=== PATIENT | female | born 1965 | race Caucasian/White ===

== ENCOUNTER 2016-11-15 17:55 | Inpatient (IN) | payer OTHER ==
[~2016-11-15] VITALS: Ht 160 cm; Wt 52.9 kg
[2016-11-15 18:57] LABS: BUN/CREATININE RATIO 35 (0-10); RED BLOOD COUNT 4.77 M/UL (4.00-5.10)
[2016-11-16 03:40] LABS: RED BLOOD COUNT 4.17 M/UL (4.00-5.10); WHITE BLOOD COUNT 18.8 K/UL (4.5-11.0)
[2016-11-16 07:18] LABS: BUN/CREATININE RATIO 30 (0-10)
[2016-11-16 07:44] LABS: HEMOGLOBIN 12.4 gm/dl (12.3-15.3); RED BLOOD COUNT 4.04 M/UL (4.00-5.10); WHITE BLOOD COUNT 16.1 K/UL (4.5-11.0)
[2016-11-16 08:07] LABS: BUN/CREATININE RATIO 34 (0-10)
[2016-11-16 13:45] LABS: BUN/CREATININE RATIO 27 (0-10)
[2016-11-16 20:46] LABS: BUN/CREATININE RATIO 27 (0-10)
[2016-11-17 05:09] LABS: BUN/CREATININE RATIO 29 (0-10)
[2016-11-17 06:00] LABS: HEMOGLOBIN 8.5 gm/dl (12.3-15.3); RED BLOOD COUNT 2.72 M/UL (4.00-5.10)
[2016-11-18 05:04] LABS: HEMOGLOBIN 8.3 gm/dl (12.3-15.3); RED BLOOD COUNT 2.67 M/UL (4.00-5.10)
[2016-11-18 05:32] LABS: BUN/CREATININE RATIO 44 (0-10)
[2016-11-18 17:05] LABS: BUN/CREATININE RATIO 57 (0-10)
[2016-11-19 03:47] LABS: HEMOGLOBIN 9.5 gm/dl (12.3-15.3)
[2016-11-19 03:48] LABS: RED BLOOD COUNT 3.11 M/UL (4.00-5.10)
[2016-11-19 04:01] LABS: BUN/CREATININE RATIO 60 (0-10)
[2016-11-19 16:28] LABS: BUN/CREATININE RATIO 65 (0-10)
[2016-11-20 05:24] LABS: BUN/CREATININE RATIO 60 (0-10)
[2016-11-20 05:36] LABS: HEMOGLOBIN 9.4 gm/dl (12.3-15.3); RED BLOOD COUNT 3.07 M/UL (4.00-5.10); WHITE BLOOD COUNT 16.6 K/UL (4.5-11.0)
[2016-11-21 03:52] LABS: HEMOGLOBIN 9.6 gm/dl (12.3-15.3); RED BLOOD COUNT 3.12 M/UL (4.00-5.10); WHITE BLOOD COUNT 14.3 K/UL (4.5-11.0)
[2016-11-21 04:34] LABS: BUN/CREATININE RATIO 63 (0-10)
[2016-11-22 03:41] LABS: HEMOGLOBIN 10.2 gm/dl (12.3-15.3); RED BLOOD COUNT 3.28 M/UL (4.00-5.10); WHITE BLOOD COUNT 14.7 K/UL (4.5-11.0)
[2016-11-22 04:01] LABS: BUN/CREATININE RATIO 70 (0-10)
[2016-11-23 03:48] LABS: HEMOGLOBIN 11.2 gm/dl (12.3-15.3); WHITE BLOOD COUNT 17.9 K/UL (4.5-11.0)
[2016-11-23 03:50] LABS: RED BLOOD COUNT 3.67 M/UL (4.00-5.10)
[2016-11-23 04:06] LABS: BUN/CREATININE RATIO 40 (0-10)
[2016-11-24 04:38] LABS: HEMOGLOBIN 9.8 gm/dl (12.3-15.3); WHITE BLOOD COUNT 15.9 K/UL (4.5-11.0)
[2016-11-24 04:40] LABS: RED BLOOD COUNT 3.15 M/UL (4.00-5.10)
[2016-11-24 04:55] LABS: BUN/CREATININE RATIO 50 (0-10)
[2016-11-25 03:38] LABS: HEMOGLOBIN 9.1 gm/dl (12.3-15.3); RED BLOOD COUNT 2.96 M/UL (4.00-5.10); WHITE BLOOD COUNT 13.9 K/UL (4.5-11.0)
[2016-11-25 04:02] LABS: BUN/CREATININE RATIO 30 (0-10)
[2016-11-26 04:45] LABS: HEMOGLOBIN 8.6 gm/dl (12.3-15.3); RED BLOOD COUNT 2.78 M/UL (4.00-5.10); WHITE BLOOD COUNT 11.8 K/UL (4.5-11.0)
[2016-11-26 05:11] LABS: BUN/CREATININE RATIO 23 (0-10)
[2016-11-27 04:25] LABS: HEMOGLOBIN 7.9 gm/dl (12.3-15.3); RED BLOOD COUNT 2.59 M/UL (4.00-5.10); WHITE BLOOD COUNT 9.7 K/UL (4.5-11.0)
[2016-11-27 04:53] LABS: BUN/CREATININE RATIO 30 (0-10)
[2016-11-28 04:14] LABS: HEMOGLOBIN 7.1 gm/dl (12.3-15.3)
[2016-11-28 04:17] LABS: RED BLOOD COUNT 2.26 M/UL (4.00-5.10); WHITE BLOOD COUNT 6.6 K/UL (4.5-11.0)
[2016-11-28 11:19] LABS: HEMOGLOBIN 7.6 gm/dl (12.3-15.3)
[2016-11-28] MEDS ORDERED: ZYVOX 600 MG T600 MG PO (15:47)
[2016-11-28] MEDS ORDERED: ENSURE ORIGINA237 ML PO (15:48)
[2016-11-28] MEDS ORDERED: PROTONIX 40 MG40 M1 PO (15:49)
[2016-11-28] MEDS ORDERED: IPRAT-ALBUT 0.5-3 ML INH (15:52)
[2016-11-28] MEDS ORDERED: TYLENOL 650 MG650 MG PO (15:54)
[2016-11-28] MEDS ORDERED: COLACE 100MG C100 MG PO (15:55)
[2016-11-28] MEDS ORDERED: LOPRESSOR 25 MG25 MG PO (15:57)
[2016-11-28] MEDS ORDERED: FERROUS SULFAT325 MG PO (15:58)
== END 2016-11-28 16:30 | disposition home or self-care (01) | DRG 870 ==
LOC: ER1 17:55 → ZEROF 20:56 → CCU 20:56 → PROG CARE 11-26 17:46
PROVIDERS: Emergency Medicine; Internal Medicine; Internal Medicine Critical Care Medicine; Internal Medicine Infectious Disease; Internal Medicine Pulmonary Disease; ADMIT Internal Medicine
PROC: 0BH17EZ Insertion of Endotracheal Airway into Trachea, Via Natural or Artificial Opening (ICD-10-PCS; principal; 2016-11-15)
PROC: 5A1955Z Respiratory Ventilation, Greater than 96 Consecutive Hours (ICD-10-PCS; principal; 2016-11-15)
PROC: 3E0G76Z Introduction of Nutritional Substance into Upper GI, Via Natural or Artificial Opening (ICD-10-PCS; 2016-11-16)
PROC: 05HM33Z Insertion of Infusion Device into Right Internal Jugular Vein, Percutaneous Approach (ICD-10-PCS; 2016-11-16)
PROC: B543ZZA Ultrasonography of Right Jugular Veins, Guidance (ICD-10-PCS; 2016-11-16)
PROC: BB281ZZ Computerized Tomography (CT Scan) of Left Tracheobronchial Tree using Low Osmolar Contrast (ICD-10-PCS; 2016-11-23)
PROC: 0W9B30Z Drainage of Left Pleural Cavity with Drainage Device, Percutaneous Approach (ICD-10-PCS; 2016-11-23)
DX: A41.02 Sepsis due to Methicillin resistant Staphylococcus aureus (principal); J96.21 Acute and chronic respiratory failure with hypoxia; J15.212 Pneumonia due to Methicillin resistant Staphylococcus aureus; E43 Unspecified severe protein-calorie malnutrition; R65.21 Severe sepsis with septic shock; J96.22 Acute and chronic respiratory failure with hypercapnia; J44.0 Chronic obstructive pulmonary disease with (acute) lower respiratory infection; E87.1 Hypo-osmolality and hyponatremia; J93.83 Other pneumothorax; N17.9 Acute kidney failure, unspecified; E87.2 Acidosis; J44.1 Chronic obstructive pulmonary disease with (acute) exacerbation; R64 Cachexia; I47.2 Ventricular tachycardia; I48.0 Paroxysmal atrial fibrillation; E87.6 Hypokalemia; B95.61 Methicillin susceptible Staphylococcus aureus infection as the cause of diseases classified elsewhere; F17.210 Nicotine dependence, cigarettes, uncomplicated; E86.0 Dehydration; R34 Anuria and oliguria; E07.81 Sick-euthyroid syndrome; D64.9 Anemia, unspecified; E87.70 Fluid overload, unspecified; R53.1 Weakness
CPT/HCPCS: ECHO; 31500; 36415; 36600; 71010; 71020; 71250; 80048; 80053; 80202; 80307; 81001; 82248; 82272; 82550; 82553; 82570; 82607; 82728; 82746; 82803; 82962; 83540; 83550; 83605; 83735; 83874; 83880; 83930; 83935; 84100; 84132; 84133; 84300; 84436; 84439; 84443; 84480; 84484; 85014; 85018; 85025; 85027; 85379; 85610; 85730; 87040; 87070; 87077; 87081; 87086; 87186; 87205; 87278; 87899; 93005; 93306; 94002; 94003; 94640; 94660; 94664; 96361; 96374; 96376; 97530; 99285; A4628; C1751; C9113; J0330; J0692; J1650; J1956; J2020; J2060; J2250; J2270; J2405; J2920; J2930; J3370; J7030; J7040; J7050; J7070; P9047; Q9963

== ENCOUNTER 2016-12-20 19:52 | Inpatient (IN) | payer OTHER ==
[~2016-12-20] VITALS: Ht 157.5 cm; Wt 64.6 kg
[~2016-12-20 19:52] MED LIST: COLACE 100MG C100 MG PO; ENSURE ORIGINA237 ML PO; FERROUS SULFAT325 MG PO; IPRAT-ALBUT 0.5-3 ML INH; LOPRESSOR 25 MG25 MG PO; PROTONIX 40 MG40 M1 PO; TYLENOL 650 MG650 MG PO; ZYVOX 600 MG T600 MG PO
[2016-12-20 20:20] LABS: HEMOGLOBIN 7.2 gm/dl (12.3-15.3); RED BLOOD COUNT 2.47 M/UL (4.00-5.10); WHITE BLOOD COUNT 16.7 K/UL (4.5-11.0)
[2016-12-21 08:43] LABS: HEMOGLOBIN 8.1 gm/dl (12.3-15.3); RED BLOOD COUNT 2.91 M/UL (4.00-5.10); WHITE BLOOD COUNT 15.9 K/UL (4.5-11.0)
[2016-12-22 05:13] LABS: RED BLOOD COUNT 2.39 M/UL (4.00-5.10); WHITE BLOOD COUNT 11.2 K/UL (4.5-11.0)
[2016-12-22 05:14] LABS: HEMOGLOBIN 6.6 gm/dl (12.3-15.3)
[2016-12-22 12:28] LABS: HEMOGLOBIN 9.1 gm/dl (12.3-15.3)
[2016-12-22 17:56] LABS: HEMOGLOBIN 10.2 gm/dl (12.3-15.3)
[2016-12-23 09:16] LABS: HEMOGLOBIN 9.2 gm/dl (12.3-15.3); WHITE BLOOD COUNT 11.7 K/UL (4.5-11.0)
[2016-12-23 09:19] LABS: RED BLOOD COUNT 3.35 M/UL (4.00-5.10)
[2016-12-24 03:44] LABS: HEMOGLOBIN 9.1 gm/dl (12.3-15.3); RED BLOOD COUNT 3.32 M/UL (4.00-5.10); WHITE BLOOD COUNT 9.9 K/UL (4.5-11.0)
[2016-12-25 04:08] LABS: HEMOGLOBIN 8.8 gm/dl (12.3-15.3); RED BLOOD COUNT 3.24 M/UL (4.00-5.10); WHITE BLOOD COUNT 8.5 K/UL (4.5-11.0)
[2016-12-26 05:15] LABS: HEMOGLOBIN 9.6 gm/dl (12.3-15.3); RED BLOOD COUNT 3.54 M/UL (4.00-5.10); WHITE BLOOD COUNT 9.2 K/UL (4.5-11.0)
[2016-12-29 03:39] LABS: HEMOGLOBIN 8.5 gm/dl (12.3-15.3); WHITE BLOOD COUNT 7.6 K/UL (4.5-11.0)
[2016-12-29 03:42] LABS: RED BLOOD COUNT 3.15 M/UL (4.00-5.10)
[2016-12-30 04:33] LABS: HEMOGLOBIN 8.3 gm/dl (12.3-15.3); RED BLOOD COUNT 3.1 M/UL (4.00-5.10); WHITE BLOOD COUNT 9.2 K/UL (4.5-11.0)
[2016-12-31 04:45] LABS: WHITE BLOOD COUNT 8.3 K/UL (4.5-11.0)
[2017-01-01 04:32] LABS: HEMOGLOBIN 7.4 gm/dl (12.3-15.3); RED BLOOD COUNT 2.8 M/UL (4.00-5.10); WHITE BLOOD COUNT 8.6 K/UL (4.5-11.0)
[2017-01-02 04:17] LABS: HEMOGLOBIN 8.9 gm/dl (12.3-15.3); RED BLOOD COUNT 3.34 M/UL (4.00-5.10); WHITE BLOOD COUNT 6.4 K/UL (4.5-11.0)
[2017-01-03 05:09] LABS: HEMOGLOBIN 7.9 gm/dl (12.3-15.3)
[2017-01-03 05:11] LABS: RED BLOOD COUNT 2.98 M/UL (4.00-5.10); WHITE BLOOD COUNT 10.1 K/UL (4.5-11.0)
[2017-01-05 04:43] LABS: HEMOGLOBIN 7.1 gm/dl (12.3-15.3); RED BLOOD COUNT 2.7 M/UL (4.00-5.10); WHITE BLOOD COUNT 8.2 K/UL (4.5-11.0)
[2017-01-06 04:34] LABS: RED BLOOD COUNT 3.04 M/UL (4.00-5.10); WHITE BLOOD COUNT 10.3 K/UL (4.5-11.0)
[2017-01-07 04:53] LABS: HEMOGLOBIN 8.9 gm/dl (12.3-15.3); RED BLOOD COUNT 3.33 M/UL (4.00-5.10)
[2017-01-07] MEDS ORDERED: ASPIRIN81 MG PO (12:34)
[2017-01-07] MEDS ORDERED: LIPITOR TAB 2020 MG PO (12:35)
[2017-01-07] MEDS ORDERED: PLAVIX 75 MG TA75 MG PO (12:35)
[2017-01-07] MEDS ORDERED: CATAPRES 0.1MG0.1 MG PO (12:35)
[2017-01-07] MEDS ORDERED: EPOETIN ALFA INJ (12:36)
[2017-01-07] MEDS ORDERED: IMDUR ER TAB 3030 MG PO (12:37)
[2017-01-07] MEDS ORDERED: LOPRESSOR100 MG PO (12:38)
[2017-01-07] MEDS ORDERED: PROTONIX40 MG PO (12:39)
[2017-01-07] MEDS ORDERED: PREDNISONE20 MG PO (12:39)
[2017-01-07] MEDS ORDERED: DULERA 200 MCG8.8 GM INH (12:40)
[2017-01-07] MEDS ORDERED: SPIRIVA HANDIH18 MCG INH (12:41)
[2017-01-07] MEDS ORDERED: BACTRIM DS TAB1 EACH PO (12:42)
[2017-01-07] MEDS ORDERED: LORCET 5-325 M1 EACH PO (12:42)
[2017-01-07] MEDS ORDERED: BUMEX 1MG TABLET1 MG PO (12:43)
== END 2017-01-07 13:27 | disposition home or self-care (01) | DRG 280 ==
LOC: ER1 19:52 → CCU 12-21 01:00 → ZEROF 12-21 01:00 → MED SURG 4 12-21 01:00 → PROG CARE 12-21 01:00 → CCU 12-21 05:27 → PROG CARE 12-24 19:58 → MED SURG 4 12-29 10:32
PROVIDERS: Emergency Medicine; Internal Medicine; Internal Medicine Infectious Disease; Internal Medicine Nephrology; Internal Medicine Pulmonary Disease; ADMIT Internal Medicine
PROC: 30233N1 Transfusion of Nonautologous Red Blood Cells into Peripheral Vein, Percutaneous Approach (ICD-10-PCS; 2016-12-21)
PROC: 0TB04ZX Excision of Right Kidney, Percutaneous Endoscopic Approach, Diagnostic (ICD-10-PCS; principal; 2016-12-30)
DX: I21.4 Non-ST elevation (NSTEMI) myocardial infarction (principal); I50.33 Acute on chronic diastolic (congestive) heart failure; N17.9 Acute kidney failure, unspecified; D62 Acute posthemorrhagic anemia; J90 Pleural effusion, not elsewhere classified; E87.1 Hypo-osmolality and hyponatremia; Z87.891 Personal history of nicotine dependence; J44.9 Chronic obstructive pulmonary disease, unspecified; Z99.81 Dependence on supplemental oxygen; N05.9 Unspecified nephritic syndrome with unspecified morphologic changes; I11.0 Hypertensive heart disease with heart failure; I48.0 Paroxysmal atrial fibrillation; D50.9 Iron deficiency anemia, unspecified; I27.2 Other secondary pulmonary hypertension; N30.91 Cystitis, unspecified with hematuria; B96.1 Klebsiella pneumoniae [K. pneumoniae] as the cause of diseases classified elsewhere; D47.3 Essential (hemorrhagic) thrombocythemia; E87.5 Hyperkalemia
CPT/HCPCS: ECHO; 36415; 36430; 36600; 71010; 71020; 71250; 77012; 78452; 80048; 80053; 80061; 80074; 80202; 80307; 81001; 82043; 82270; 82272; 82533; 82550; 82553; 82570; 82728; 82803; 82962; 83010; 83036; 83516; 83540; 83550; 83615; 83690; 83735; 83874; 83880; 83883; 84156; 84300; 84443; 84484; 85014; 85018; 85025; 85027; 85379; 85610; 85730; 86039; 86060; 86160; 86334; 86850; 86900; 86901; 86920; 87077; 87081; 87086; 87186; 87880; 88305; 88313; 88346; 88348; 89050; 93005; 93017; 93306; 93970; 94640; 96361; 96374; 96375; 97116; 99285; A9502; J0696; J0885; J1644; J1756; J2270; J2405; J2785; J2930; J3370; J7030; J7050; J7070; P9016

== ENCOUNTER 2017-01-13 15:17 | Inpatient (IN) | payer OTHER ==
[~2017-01-13] VITALS: Ht 157.5 cm; Wt 49.4 kg
[~2017-01-13 15:17] MED LIST changes: +ASPIRIN81 MG PO; +BACTRIM DS TAB1 EACH PO; +BUMEX 1MG TABLET1 MG PO; +CATAPRES 0.1MG0.1 MG PO; +DULERA 200 MCG8.8 GM INH; +EPOETIN ALFA INJ; +IMDUR ER TAB 3030 MG PO; +LIPITOR TAB 2020 MG PO; +LOPRESSOR100 MG PO; +LORCET 5-325 M1 EACH PO; +PLAVIX 75 MG TA75 MG PO; +PREDNISONE20 MG PO; +PROTONIX40 MG PO; +SPIRIVA HANDIH18 MCG INH
[2017-01-13 16:26] LABS: HEMOGLOBIN 8.6 gm/dl (12.3-15.3); RED BLOOD COUNT 3.13 M/UL (4.00-5.10); WHITE BLOOD COUNT 13.1 K/UL (4.5-11.0)
[2017-01-14 05:43] LABS: HEMOGLOBIN 8.3 gm/dl (12.3-15.3); RED BLOOD COUNT 2.98 M/UL (4.00-5.10); WHITE BLOOD COUNT 10.9 K/UL (4.5-11.0)
[2017-01-15 01:22] LABS: HEMOGLOBIN 7.8 gm/dl (12.3-15.3); RED BLOOD COUNT 2.84 M/UL (4.00-5.10); WHITE BLOOD COUNT 10.6 K/UL (4.5-11.0)
--- NOTE | 2017-01-16 03:20 | NUR ---
PATIENT COMPLAINS OF CHEST PAIN. PATIENT IS DIAPHORETIC, SHIVERING, STATES SHE IS "FREEZING". CHEST PAIN RATES 7/10. DULL PRESSURE. HOSPITALIST DR FOY MADE AWARE. STAT EKG OBTAINED. NITRO SL SERIES ADMINISTERED. AFTER THIRD NITRO SL PATIENT RATES PAIN 4/10. NITRO PASTE NOTED ON CHEST WALL. MD TELEPHONE ORDERES MORPHINE FOR PAIN DOSE DEPENDENT UPON SEVERITY OF PAIN RATING. RN ADMINISTERS 2MG MORPINE IV WITH NO RELIEF OF PAIN. SINUS GEOVANNY 58 NOTED ON MONITOR , NO ST ELEVATION OR DEPRESSION NOTED ON EKG. CARDIAC ENZYMES CONTINUE TO TREND DOWNWARD. COVERING HOSPITALIST AWARE OF PATIENT CONDITION. WILL CONTINUE TO MONITOR PATIENT.
[2017-01-16 03:32] LABS: HEMOGLOBIN 9.5 gm/dl (12.3-15.3); WHITE BLOOD COUNT 9.4 K/UL (4.5-11.0)
[2017-01-16 03:34] LABS: RED BLOOD COUNT 3.34 M/UL (4.00-5.10)
[2017-01-16 17:40] LABS: HEMOGLOBIN 9.7 gm/dl (12.3-15.3); RED BLOOD COUNT 3.46 M/UL (4.00-5.10); WHITE BLOOD COUNT 11.5 K/UL (4.5-11.0)
[2017-01-17 04:23] LABS: HEMOGLOBIN 8.6 gm/dl (12.3-15.3)
[2017-01-17 04:28] LABS: RED BLOOD COUNT 3.09 M/UL (4.00-5.10); WHITE BLOOD COUNT 7.8 K/UL (4.5-11.0)
[2017-01-18 04:41] LABS: HEMOGLOBIN 9.2 gm/dl (12.3-15.3); RED BLOOD COUNT 3.26 M/UL (4.00-5.10); WHITE BLOOD COUNT 9.4 K/UL (4.5-11.0)
[2017-01-18] MEDS ORDERED: LABETALOL HCL300 MG PO (12:46)
[2017-01-18] MEDS ORDERED: LASIX 40 MG TAB40 MG PO (12:48)
== END 2017-01-18 14:30 | disposition home or self-care (01) | DRG 247 ==
LOC: ER1 15:17 → ZEROF 17:54 → PROG CARE 21:50
PROVIDERS: Emergency Medicine; Internal Medicine; Internal Medicine Nephrology; ADMIT Internal Medicine
PROC: 30233N1 Transfusion of Nonautologous Red Blood Cells into Peripheral Vein, Percutaneous Approach (ICD-10-PCS; 2017-01-15)
PROC: 027034Z Dilation of Coronary Artery, One Artery with Drug-eluting Intraluminal Device, Percutaneous Approach (ICD-10-PCS; principal; 2017-01-16)
PROC: 4A023N7 Measurement of Cardiac Sampling and Pressure, Left Heart, Percutaneous Approach (ICD-10-PCS; 2017-01-16)
PROC: B2111ZZ Fluoroscopy of Multiple Coronary Arteries using Low Osmolar Contrast (ICD-10-PCS; 2017-01-16)
DX: I21.4 Non-ST elevation (NSTEMI) myocardial infarction (principal); N17.9 Acute kidney failure, unspecified; J96.11 Chronic respiratory failure with hypoxia; I13.0 Hypertensive heart and chronic kidney disease with heart failure and stage 1 through stage 4 chronic kidney disease, or unspecified chronic kidney disease; I50.32 Chronic diastolic (congestive) heart failure; D62 Acute posthemorrhagic anemia; I47.2 Ventricular tachycardia; Z68.1 Body mass index [BMI] 19.9 or less, adult; I25.110 Atherosclerotic heart disease of native coronary artery with unstable angina pectoris; N05.7 Unspecified nephritic syndrome with diffuse crescentic glomerulonephritis; N18.3 Chronic kidney disease, stage 3 (moderate); J44.9 Chronic obstructive pulmonary disease, unspecified; I48.0 Paroxysmal atrial fibrillation; D50.9 Iron deficiency anemia, unspecified; R63.4 Abnormal weight loss; R04.0 Epistaxis; D72.829 Elevated white blood cell count, unspecified; Z87.891 Personal history of nicotine dependence; Z87.01 Personal history of pneumonia (recurrent); Z72.3 Lack of physical exercise; Z79.02 Long term (current) use of antithrombotics/antiplatelets; Z79.82 Long term (current) use of aspirin; Z79.52 Long term (current) use of systemic steroids; Z79.51 Long term (current) use of inhaled steroids; Z99.81 Dependence on supplemental oxygen; Z79.891 Long term (current) use of opiate analgesic; Z79.899 Other long term (current) drug therapy; Z90.710 Acquired absence of both cervix and uterus; Z90.49 Acquired absence of other specified parts of digestive tract; Z98.890 Other specified postprocedural states; Z82.49 Family history of ischemic heart disease and other diseases of the circulatory system
CPT/HCPCS: ECHO; 36415; 36430; 71010; 80048; 80053; 82550; 82553; 82570; 82728; 83540; 83550; 83735; 83874; 83880; 84156; 84484; 85025; 85027; 85347; 85379; 85610; 85730; 86850; 86900; 86901; 86920; 93005; 93306; 94640; 94664; 96374; 96375; 99291; C1725; C1769; C1874; C1887; C1894; C9600; J0360; J1644; J1756; J2250; J2270; J2550; J3010; J7050; P9016; Q9965

== ENCOUNTER → 2017-01-25 | Outpatient (CLI) | payer OTHER ==
[~2017-01-25] MED LIST changes: +LABETALOL HCL300 MG PO; +LASIX 40 MG TAB40 MG PO
[2017-01-25 15:47] LABS: HEMOGLOBIN 9.8 gm/dl (12.3-15.3); RED BLOOD COUNT 3.39 M/UL (4.00-5.10); WHITE BLOOD COUNT 7.7 K/UL (4.5-11.0)
== END ==
LOC: LAB 15:07
PROVIDERS: Internal Medicine Nephrology
DX: I10 Essential (primary) hypertension (principal); N17.9 Acute kidney failure, unspecified; D64.9 Anemia, unspecified
CPT/HCPCS: 36415; 80048; 85025

== ENCOUNTER → 2017-01-28 | Outpatient (CLI) | payer OTHER | LOC: LAB 14:29 | PROVIDERS: Internal Medicine Nephrology | DX: N18.9 Chronic kidney disease, unspecified (principal); R80.9 Proteinuria, unspecified | CPT/HCPCS: 36415; 80053; 82570; 84156 ==

== ENCOUNTER 2017-02-01 16:37 | Emergency (ER) | payer OTHER | END 2017-02-01 18:01 | disposition left against medical advice (07) | LOC: ER1 16:37 | DX: Z53.21 Procedure and treatment not carried out due to patient leaving prior to being seen by health care provider (principal) ==

== ENCOUNTER → 2017-02-03 | Outpatient (CLI) | payer OTHER | LOC: LAB 11:38 | PROVIDERS: Internal Medicine Nephrology | DX: J44.9 Chronic obstructive pulmonary disease, unspecified (principal); N18.9 Chronic kidney disease, unspecified; E87.6 Hypokalemia; N05.7 Unspecified nephritic syndrome with diffuse crescentic glomerulonephritis; R91.8 Other nonspecific abnormal finding of lung field; J90 Pleural effusion, not elsewhere classified | CPT/HCPCS: 36415; 71020; 80048; 82728; 83540; 83550; 83735 ==

== ENCOUNTER → 2017-02-17 | Outpatient (CLI) | payer OTHER ==
[2017-02-17 15:28] LABS: HEMOGLOBIN 11.6 gm/dl (12.3-15.3); RED BLOOD COUNT 3.8 M/UL (4.00-5.10); WHITE BLOOD COUNT 14.3 K/UL (4.5-11.0)
== END ==
LOC: LAB 14:51
PROVIDERS: Internal Medicine Nephrology
DX: N18.9 Chronic kidney disease, unspecified (principal); E87.6 Hypokalemia; N05.7 Unspecified nephritic syndrome with diffuse crescentic glomerulonephritis
CPT/HCPCS: 36415; 80053; 81001; 82043; 82570; 84156; 85027

== ENCOUNTER 2020-11-28 22:41 | Inpatient (IN) | payer OTHER ==
[~2020-11-28] VITALS: Ht 160 cm; Wt 49.4 kg
[~2020-11-28 22:41] MED LIST changes: +ALDACTONE25 MG PO; +LEVAQUIN750 MG PO; +LORTAB 5-325 M1 EACH PO; +MEDROL4 MG PO; +NITROGLYCERIN0.4 MG SL
[2020-11-28 23:52] LABS: HEMOGLOBIN 15.1 gm/dl (12.3-15.3); RED BLOOD COUNT 4.63 M/UL (4.00-5.10); WHITE BLOOD COUNT 22.3 K/UL (4.5-11.0)
[2020-11-29 00:09] LABS: BUN/CREATININE RATIO 18 (0-10)
[2020-11-30 03:53] LABS: HEMOGLOBIN 11.1 gm/dl (12.3-15.3); RED BLOOD COUNT 3.5 M/UL (4.00-5.10); WHITE BLOOD COUNT 10.5 K/UL (4.5-11.0)
[2020-12-01 03:43] LABS: HEMOGLOBIN 11.1 gm/dl (12.3-15.3); RED BLOOD COUNT 3.56 M/UL (4.00-5.10)
[2020-12-01 03:53] LABS: WHITE BLOOD COUNT 5.9 K/UL (4.5-11.0)
[2020-12-01] MEDS ORDERED: ATORVASTATIN CA20 MG PO (08:37)
[2020-12-01] MEDS ORDERED: LISINOPRIL10 MG PO (08:37)
[2020-12-01] MEDS ORDERED: CARVEDILOL3.125 MG PO (08:37)
[2020-12-01] MEDS ORDERED: ZITHROMAX250 MG PO (08:37)
[2020-12-01] MEDS ORDERED: OMNICEF 300 MG300 MG PO (08:37)
[2020-12-01] MEDS ORDERED: MEDROL TAB 4 MG4 MG PO (09:33)
[2020-12-01] MEDS ORDERED: IPRAT-ALBUT 0.5-3 ML INH (09:33)
[2020-12-01] MEDS ORDERED: NEBULIZER UNIT INH (09:33)
[2020-12-01] MEDS ORDERED: COMBIVENT RESPIM4 GM INH (09:34)
[2020-12-01] MEDS ORDERED: COREG 12.5MG12.5 MG PO (10:43)
== END 2020-12-01 14:40 | disposition home or self-care (01) | DRG 193 ==
LOC: ER1 22:41 → CDU 11-29 00:30 → M/S 11-29 00:30
PROVIDERS: Family Medicine; Nurse Practitioner; ADMIT Internal Medicine
PROC: B24BZZ4 Ultrasonography of Heart with Aorta, Transesophageal (ICD-10-PCS; principal; 2020-11-29)
DX: J18.9 Pneumonia, unspecified organism (principal); J96.01 Acute respiratory failure with hypoxia; M62.82 Rhabdomyolysis; I42.9 Cardiomyopathy, unspecified; E87.2 Acidosis; I50.22 Chronic systolic (congestive) heart failure; N17.9 Acute kidney failure, unspecified; Z20.822 Contact with and (suspected) exposure to COVID-19; E78.5 Hyperlipidemia, unspecified; J43.9 Emphysema, unspecified; D64.9 Anemia, unspecified; E87.6 Hypokalemia; F17.210 Nicotine dependence, cigarettes, uncomplicated; I08.1 Rheumatic disorders of both mitral and tricuspid valves; I25.10 Atherosclerotic heart disease of native coronary artery without angina pectoris; I11.0 Hypertensive heart disease with heart failure; Z95.5 Presence of coronary angioplasty implant and graft; Z87.01 Personal history of pneumonia (recurrent); Z91.14 Patient's other noncompliance with medication regimen; Z90.49 Acquired absence of other specified parts of digestive tract; Z90.710 Acquired absence of both cervix and uterus; I25.2 Old myocardial infarction; Z79.82 Long term (current) use of aspirin; Z71.6 Tobacco abuse counseling; Z98.51 Tubal ligation status; Z88.5 Allergy status to narcotic agent; Z82.49 Family history of ischemic heart disease and other diseases of the circulatory system
CPT/HCPCS: ECHO; 0240U; 36415; 36600; 71045; 78452; 80048; 80053; 80061; 82550; 82553; 82803; 83605; 83735; 83880; 84484; 85025; 85379; 87040; 87086; 93005; 93017; 93306; 93925; 94640; 94664; 94760; 96365; 96367; 96372; 96375; 99285; A9502; J0456; J0696; J1650; J1885; J1940; J2270; J2405; J2785; J2930; J7030

== ENCOUNTER 2020-12-17 14:22 | Emergency (ER) | payer OTHER ==
[~2020-12-17 14:22] MED LIST changes: +ATORVASTATIN CA20 MG PO; +CARVEDILOL3.125 MG PO; +COMBIVENT RESPIM4 GM INH; +COREG 12.5MG12.5 MG PO; +LISINOPRIL10 MG PO; +MEDROL TAB 4 MG4 MG PO; +NEBULIZER UNIT INH; +OMNICEF 300 MG300 MG PO; +ZITHROMAX250 MG PO
[2020-12-17 15:25] LABS: HEMOGLOBIN 14.1 gm/dl (12.3-15.3); RED BLOOD COUNT 4.45 M/UL (4.00-5.10); WHITE BLOOD COUNT 6.3 K/UL (4.5-11.0)
[2020-12-17 15:50] LABS: BUN/CREATININE RATIO 12 (0-10)
[2020-12-17] MEDS ORDERED: OXYGEN AT (23:13)
== END 2020-12-17 23:51 | disposition home or self-care (01) ==
LOC: ER1 14:22
PROVIDERS: Student in an Organized Health Care Education/Training Program
DX: J44.9 Chronic obstructive pulmonary disease, unspecified (principal); I13.0 Hypertensive heart and chronic kidney disease with heart failure and stage 1 through stage 4 chronic kidney disease, or unspecified chronic kidney disease; N18.9 Chronic kidney disease, unspecified; I50.9 Heart failure, unspecified; F17.210 Nicotine dependence, cigarettes, uncomplicated; Z90.49 Acquired absence of other specified parts of digestive tract; Z90.710 Acquired absence of both cervix and uterus; Z90.89 Acquired absence of other organs; Z20.822 Contact with and (suspected) exposure to COVID-19
CPT/HCPCS: 0240U; 36600; 71045; 80053; 82550; 82553; 82803; 83605; 83690; 83735; 83874; 83880; 84100; 84484; 84702; 85025; 85379; 85610; 85730; 93005; 96374; 96375; 96376; 99285; J1940; J2270; J2405

== ENCOUNTER → 2021-01-09 | Outpatient (CLI) | payer OTHER ==
[~2021-01-09] MED LIST changes: +OXYGEN AT
== END ==
LOC: KOH-I 11:18
DX: J44.9 Chronic obstructive pulmonary disease, unspecified (principal); J43.9 Emphysema, unspecified
CPT/HCPCS: 71046

== ENCOUNTER → 2021-02-20 | Outpatient (CLI) | payer OTHER | LOC: HEART 5 09:34 | DX: I20.9 Angina pectoris, unspecified (principal); I42.9 Cardiomyopathy, unspecified; I50.9 Heart failure, unspecified; I08.1 Rheumatic disorders of both mitral and tricuspid valves; I25.3 Aneurysm of heart | CPT/HCPCS: 93306 ==

== ENCOUNTER 2021-08-11 09:47 | Emergency (ER) | payer OTHER ==
[2021-08-11 11:09] LABS: HEMOGLOBIN 15.1 gm/dl (12.3-15.3); RED BLOOD COUNT 4.73 M/UL (4.00-5.10); WHITE BLOOD COUNT 7.4 K/UL (4.5-11.0)
[2021-08-11 11:34] LABS: BUN/CREATININE RATIO 11 (0-10)
[2021-08-11] MEDS ORDERED: TORADOL 10 MG T10 MG PO (13:45)
[2021-08-11] MEDS ORDERED: FLOMAX 0.4 MG0.4 MG PO (13:45)
[2021-08-11] MEDS ORDERED: ONDANSETRON ODT4 MG SL (13:45)
[2021-08-11] MEDS ORDERED: CEPHALEXIN500 MG PO (13:45)
[2021-08-11] MEDS ORDERED: HYDROCODONE-AC1 EACH PO ×3 (13:51→13:54)
== END 2021-08-11 14:45 | disposition home or self-care (01) ==
LOC: ER1 09:47
PROVIDERS: Physician Assistant
DX: N20.1 Calculus of ureter (principal); I25.10 Atherosclerotic heart disease of native coronary artery without angina pectoris; Z90.710 Acquired absence of both cervix and uterus; Z90.49 Acquired absence of other specified parts of digestive tract; J44.9 Chronic obstructive pulmonary disease, unspecified; Z79.82 Long term (current) use of aspirin; Z95.5 Presence of coronary angioplasty implant and graft
CPT/HCPCS: 80053; 81001; 85025; 87086; 96374; 96375; 96376; 99284; J1885; J2405

== ENCOUNTER → 2022-03-21 | Outpatient (CLI) | payer OTHER ==
[~2022-03-21] MED LIST changes: +CEPHALEXIN500 MG PO; +FLOMAX 0.4 MG0.4 MG PO; +HYDROCODONE-AC1 EACH PO; +ONDANSETRON ODT4 MG SL; +TORADOL 10 MG T10 MG PO
[2022-03-21 08:06] LABS: HEMOGLOBIN 13.8 gm/dl (12.3-15.3); RED BLOOD COUNT 4.41 M/UL (4.00-5.10); WHITE BLOOD COUNT 7.4 K/UL (4.5-11.0)
[2022-03-21 08:33] LABS: BUN/CREATININE RATIO 16 (0-10)
== END ==
LOC: MAMO 03-07 14:30
PROVIDERS: Nurse Practitioner Family
DX: Z12.31 Encounter for screening mammogram for malignant neoplasm of breast (principal); M54.50 Low back pain, unspecified; I10 Essential (primary) hypertension; F41.9 Anxiety disorder, unspecified; E55.9 Vitamin D deficiency, unspecified
CPT/HCPCS: 36415; 72100; 77063; 77067; 80053; 80061; 81001; 84439; 84443; 85025